=== PATIENT | female | born 1980 | race Caucasian/White ===

== ENCOUNTER 2018-05-31 06:21 | Inpatient (IN) ==
[2018-05-31] MEDS ORDERED: Sodium Chlor 0.9% Inj 500 ML IV.CONT ONE (07:00)
[2018-05-31] MEDS ORDERED: Chlorhexidine Gluconate 2% 1 Pack (2 Cloths) TOPICAL ONE (07:00)
[2018-05-31] MEDS ORDERED: Metoprolol Tartrate 25 MG Tablet PO ONE (07:00)
[2018-05-31] MEDS ORDERED: Sodium Chloride 0.9% 2 ML Flush PRN IV.FLUSH (07:02)
[2018-05-31] MEDS ORDERED: Heparin - SQ 10,000 UNITS/ML Vial SQ SCH (07:15)
[2018-05-31] MEDS ORDERED: Sugammadex Inj 200 MG/2 ML Vial IV.PUSH ONE (07:30)
[2018-05-31] MEDS ORDERED: Artificial Tears Opth Oint 3.5 GM Tube ONE (07:31)
[2018-05-31] MEDS ORDERED: Lidocaine 1%/Epinephrine 1:100,000 Inj 50 ML Vial ONE (08:56)
[2018-05-31] MEDS ORDERED: Glycopyrrolate Inj 1 MG/5 ML Syringe IV.PUSH ONE (09:13)
--- NOTE | 2018-05-31 10:04 | P.OP ---
- Preoperative Diagnosis (1) Endometriosis - Postoperative Diagnosis (1) Endometriosis Date of procedure: 05/31/18 Procedure: Cystoscopy and placement of bilateral ureteral catheters Implants: Bilateral ureteral catheters Anesthesia: GETA Surgeon: Roland Farr MD Estimated blood loss (mL): 0 Pathology: none sent Operation and Findings: Indication for urologic procedures: Consulted intraoperatively to place bilateral ureteral catheters to aid in visualization of this patient's ureters during her FOCUSER and colorectal procedures. Urologic procedures in detail: With the patient in the dorsolithotomy position, I proceeded with cystoscopic evaluation utilizing the rigid cystoscope with the 22 Portuguese sheath and the 30 degree lens. Both right and left ureteral orifices were in correct anatomic position draining clear yellow urine. There were no bladder mucosal lesions, calculi or diverticula formation. There were no areas suspicious for fistula formation. I then proceeded to pass a sensor 0.035 wire up the patient's left ureter until a small amount of resistance was met. A 6 Portuguese open-ended ureteral catheter was then advanced over the wire 25 cm in a cephalad direction. With the catheter in place the wire was withdrawn and reintroduced through secondary site via the cystoscope. In similar fashion the contralateral side was accomplished. The cystoscope and wire were then withdrawn and a 16 Portuguese three-way Swartz was placed. Both ureteral catheters were anchored to the Swartz via a connector and all catheters placed to gravity drainage. This completes the urologic surgery portion of combined procedures on this patient.
[2018-05-31] MEDS ORDERED: Naloxone Inj 0.4 MG/ML Vial IV.PUSH PRN (14:17)
[2018-05-31] MEDS ORDERED: fentaNYL Citrate Inj 100 MCG/2 ML Ampul ONE ×2 (14:47)
[2018-05-31] MEDS ORDERED: Morphine Inj 4 MG/ML Vial ONE (14:47)
--- NOTE | 2018-05-31 14:50 | MP ---
cc: Natalie Diaz MD, Kathleen MD DATE OF OPERATION: 05/31/2018 DATE OF PROCEDURE: 05/31/2018 PREOPERATIVE DIAGNOSIS: Severe symptomatic endometriosis. POSTOPERATIVE DIAGNOSIS: Severe symptomatic endometriosis. PROCEDURE: Robotic-assisted laparoscopic hysterectomy, bilateral salpingo-oophorectomy, right ureterolysis, lysis of adhesions. SURGEON: Madonna Diaz MD ANALYZER SALES: [employer] certified first assistant. ANESTHESIA: General endotracheal anesthesia. ESTIMATED BLOOD LOSS: 100 mL. HISTORY: A 38-year-old female with cyclic pain, cyclic symptoms including GI symptoms, pain with bowel movements, sometimes bleeding, found on exam to have changes suggestive of endometriosis previously underwent a sigmoidoscopy that showed stricture in the sigmoid colon. She has been seen on multiple occasions and counseled. She has been started on Depot Lupron injections, which have improved, but not resolved her symptoms and her CA-125 which was modestly elevated as improved, but not normalized. She is also seeing Dr. Joelle Llanes in colorectal surgery for consultation, and she presents now for definitive surgical management. Previously discussed and discussed again today are the reproductive and menopausal ramifications of a hysterectomy and bilateral salpingo-oophorectomy. She understands that this is the most definitive treatment for endometriosis, but understands menopausal changes and infertility that result. She was also seen Dr. Joelle Llanes and understands that there is a reasonably high chance to alleviate her symptomatic endometriosis that a sigmoid colon resection may be necessary. We have coordinated surgery to move forward at this time. She expressed good understanding and agrees. FINDINGS: On laparoscopic evaluation, the uterus is not appreciably enlarged. It sounds to approximately 8 cm. The tubes and ovaries are adherent to the pelvic sidewall. The bladder is adherent to the lower uterine segment and cervix and the sigmoid colon is lopped back on itself, structured and adherent in the posterior cul-de-sac to the level of the cervix. There is no overt evidence of intraperitoneal nodularity. No adenopathy or other abnormality to suggest malignancy. Preliminary evaluation of the uterus, tubes, and ovaries showed no evidence of malignancy. DESCRIPTION OF PROCEDURE: She was taken to the operating room and placed in the dorsal lithotomy position after general endotracheal anesthesia was administered. A timeout was undertaken. She was identified by site recognition and hospital ID bracelet and the proposed procedure was reviewed and confirmed. She was carefully secured to the table. Arms were secured. All sites were inspected and noted to be properly aligned with no malalignments or pressure points. She was prepped and draped in sterile fashion. Dr. Roland Farr performed cystoscopy and placed retrograde stents after which I placed a VCare manipulator. The cervix was grasped. The uterine cavity was sounded. Cervix was dilated and a standard VCare manipulator was inserted and secured in usual fashion. Dr. Joelle Llanes started work simultaneously and gained access to the peritoneal cavity laparoscopically and set up the port sites in keeping with our surgical objectives. The robotic system was brought into the operative field after 3 Ray-Indigo sponges were placed in the peritoneal cavity after the small bowel was folded back in its mesenteric root and the HEALTHCARE ECONOMICS CONSULTANT objectives were first set for the surgery, so I took my place at the surgeon's console. The right round ligament was isolated, cauterized, transected. The anterior and posterior leafs of the broad ligament were opened. Retroperitoneal dissection was carried above the level of the pelvic brim. The right ureter was densely adherent with adhesions parallel to and adjacent to the gonadal vessels proximally, so a window of peritoneum was opened below the right utero-ovarian ligament and the posterior peritoneum was opened along the right side of the uterus and cervix. Dissecting the adhesions to elevate the gonadal vessels in this region. Redirected toward the proximal pelvis where sharp dissection was used to take down the scar tissue, separate the adhesions to allow mobilization of the ureter and these adhesions were taken down along its course in the pelvis until the ureter could be mobilized laterally and away from the gonadal structures. Now, the infundibulopelvic ligament was isolated, cauterized, and transected. The vesicouterine peritoneum was dissected off the lower uterine segment and cervix. The right uterine vessels were skeletonized, cauterized and transected as were the cardinal, paracervical and uterosacral ligaments. Attention was directed toward the left side. Left round ligament was isolated, cauterized, and transected. The anterior and posterior leafs of the broad ligament were opened. Some physiologic adhesions from the colon to the left pelvic sidewall were taken down with sharp dissection. The left ureter was identified in the retroperitoneum. The left ovary was densely adhered to the left pelvic sidewall and cul-de-sac and these adhesions were taken down with sharp dissection to mobilize the ovary. An opening was made in the peritoneum and the infundibulopelvic ligament was isolated to the level of the pelvic brim. The ureter had been retracted posteriorly and the infundibulopelvic ligament was cauterized and transected. The uterine vessels were skeletonized on the left. The posterior peritoneum was open on the left side and the vesicouterine peritoneum was dissected to complete the bladder flap. The left uterine vessels were now cauterized and transected as were the cardinal, paracervical and uterosacral ligaments. Circumferential colpotomy was performed the cervix from the upper vagina. The specimen was withdrawn transvaginally which included uterus, cervix, tubes and ovaries and a lap pad was placed in the vagina to maintain pneumoperitoneum. Instruments 1 and 3 were exchanged for needle drivers as a 0 Vicryl suture was introduced. Vaginal cuff was closed starting at the left corner and full-thickness closure, incorporating the edge of the uterosacral ligament and posterior peritoneum. It was tied via instrument tie. Closure was held on countertraction as a full-thickness continuous running closure was carried across the vaginal cuff to the contralateral corner. They were similarly fixed tied secured and the needle was cut and removed. Integrity of the bladder was confirmed by filling the bladder with saline dyed with methylene blue. There was a good margin between the vaginal cuff suture line and the edge of the bladder. The bladder wall was intact. No areas to suggest thinning and no defects in the bladder. Good peristalsis of ureters bilaterally and the bladder was drained. Pelvis was thoroughly irrigated, rendered free of blood and clot. It should be noted that prior to closing the cuff, each of the 3 Ray-Indigo sponges that had been placed in the peritoneal cavity had been removed transvaginally with a ring forceps. Each were inspected and noted to be removed in their entirety. Preliminary counts were correct and there were no remaining foreign objects in peritoneal cavity. It was felt that all reasonable gynecologic objectives of the surgery had been completed. Dr. Llanes was notified that we are ready for her portion of the case. After the laparoscopic instruments were removed, the robotic system was undocked for repositioning by Dr. Llanes. This allowed the pelvic exam to confirm that the vaginal cuff was hemostatic and well supported. There were no remaining foreign objects in the vagina. Preliminary and final counts were correct and the case was turned over to Dr. Llanes. Please see her operative note for her procedures. MD Suleiman Quach , 01:37 PM , 01:54 PM
[2018-05-31] MEDS ORDERED: *Meperidine Inj 25 MG/ML Vial PERIprocedural Use ONLY ONE (14:59)
[2018-05-31] MEDS: Dextrose 5%/NaCl 0.9% Inj 1,000 ML IV.CONT SCH ×2 (15:00→23:10)
[2018-05-31] MEDS: Morphine Inj 30 MG/30 ML PCA.VIAL PCA PRN (15:12)
[2018-05-31] MEDS ORDERED: *morphine SULFATE 4 MG/ML PERIprocedure ONLY ONE (15:21)
[2018-05-31] MEDS ORDERED: NORMOSOL R PH IV.CONT PRN (15:45)
[2018-05-31 15:57] LABS: Baso % (Auto) 0.1 % (0.0-2.0); Hematocrit 36.6 % (35.0-46.0); Hemoglobin 12.4 gm/dL (11.6-15.3); Lymph # (Auto) 0.5 th/mm3 (1.0-4.8); Lymph % (Auto) 3.5 % (9.0-44.0); Mean Corpuscular HGB Conc 33.7 % (32.0-36.0); Mean Corpuscular Hemoglobin 27.4 pg (27.0-34.0); Mean Corpuscular Volume 81.1 fL (80.0-100.0); Mean Platelet Volume 8.2 fL (7.0-11.0); Mono # (Auto) 0.4 th/mm3 (0.0-0.9); Neut # (Auto) 11.9 th/mm3 (1.8-7.7); Neut % (Auto) 93.4 % (16.0-70.0); Platelet Count 149 th/mm3 (150-450); Red Blood Count 4.52 mil/mm3 (4.00-5.30); Red Cell Distribution Width 13.9 % (11.6-17.2); White Blood Count 12.7 th/mm3 (4.0-11.0)
[2018-05-31 16:25] LABS: Carbon Dioxide 25.7 meq/L (21.0-32.0); Potassium 3.2 meq/L (3.5-5.1)
--- NOTE | 2018-05-31 16:41 | MP ---
cc: Nai Llanes MD, Dr. DATE OF OPERATION: 05/31/2018 DATE OF SURGERY: 05/31/2018. PREOPERATIVE DIAGNOSIS: Stricture secondary to endometriosis. POSTOPERATIVE DIAGNOSES: Stricture secondary to endometriosis. PROCEDURE: Robotic low anterior resection. SURGEON: Nai Llanes MD ANESTHESIA: General per ET tube. ESTIMATED BLOOD LOSS: Less than 50 mL INDICATIONS: The patient is a 38-year-old female who has been noted to have severe endometriosis which also involved her distal sigmoid colon with a stricture, which was fairly symptomatic with difficulty with constipation. This procedure was done in concert with a robotic hysterectomy with bilateral salpingo-oophorectomy by Dr. Diaz; please see his operative note for details. OPERATIVE FINDINGS: The patient had a very tight stricture at the distal sigmoid just above the rectosigmoid junction with no mucosal abnormalities once the specimen was opened. The liver was visibly normal. The uterus and ovaries are addressed in Dr. Diaz' report. OPERATIVE COURSE: The patient was brought to the operating room, placed in the supine position. After induction of general anesthesia, the patient was placed in Jorje stirrups and all bony prominences were carefully padded. The skin of the anterior abdominal wall as well as the perineal area was then prepped and draped in the usual sterile fashion. Dr. Parth Farr then came in and performed cystoscopy with placement of bilateral ureteral catheters, please see his operative note for details. The site was then chosen for the camera being located just to the right and cephalad to the umbilicus. A 10/12 trocar was placed at this location under direct vision using the laparoscope. CO2 insufflation was then undertaken and a brief abdominal survey was performed with nothing noted that would preclude the robotic approach. The remainder of the ports were then placed as follows: The #1 port was placed just inside the right anterior superior iliac spine. An 8-Da Deneen port was placed just under the right costal margin an equal distance between the #1 and the camera port for Dr. Diaz to use as his #1 port. An 8-Da Deneen was placed in the left anterior axillary line on the line of the umbilicus and the #2 port was placed 2 fingerbreadths above the umbilical line in the left midclavicular line. The patient was hydroplaned with head down and slightly to the right and the small bowel was brought up and out of the pelvis without any difficulty. At this point, Dr. Diaz came in and his portion of the procedure. When he was completed, I returned. The sigmoid colon was retracted to the left and the peritoneum on the right was scored. Dissection was continued in the posterior plane until the left ureter was clearly identified and swept away from the specimen. A window was then made distally around the superior hemorrhoidal vessels. These were dissected free circumferentially and a white load of the [place] [facility] stapler was placed across the vessels at this level. Dissection then continued posteriorly down to the level of the distal rectum and up and around to the right and left side. At this point, the anterior surface of the rectum where the stricture was, was carefully dissected free from the posterior vagina. Eventually, we had dissected past the area of the stricture and inflammatory changes, but it was necessary to go below the cul-de-sac for this. At about the mid rectum level, the bowel was soft and pliable circumferentially. The mesentery at this level was divided using the Harmonic scalpel and a blue load of [place] endoscopic stapler was placed across the bowel at this level. A second load was necessary to transect the bowel. The 29 EEA stapler was advanced through the anus and up to the rectal stump without difficulty and it lay nicely with a small amount of fibrofatty tissue that was removed. The proximal bowel was brought down to lay nicely against the rectal stump without tension and I did not feel that we needed to do much additional dissection. The proximal staple at the end of the bowel was grasped with a locking grasper and the robot was undocked. An 8 cm -10 cm incision was made in the suprapubic area using electrocautery. Dissection was carried down to the fascia of the anterior abdominal wall, which was split the length of the skin incision. The fibers of the rectus abdominus muscle were then spread open without cauterizing too many of them and the posterior fascia/peritoneum was incised the length of the skin incision as well. A wound protector was then placed and the proximal stapled end of the bowel was grasped and pulled up and out through the wound protector. Site was chosen for proximal division of the bowel where it came down nicely to the rectal stump. The mesentery at this level was similarly divided and ligated using 0-Vicryl ties and a pursestring stapling device was placed across the bowel at this level. The distal bowel was occluded with a Anthony clamp. The bowel was then amputated and taken to a back table where it was opened and the previously mentioned findings were noted. The anvil from the 29 EEA stapler was then placed into the cut end of the bowel and the previously placed pursestring suture was then secured. This was reduced back into the peritoneal cavity. The posterior fascia/peritoneum was then closed in a running fashion using #1 PDS and the anterior fascia was closed in running fashion using #1 PDS. The wound was copiously irrigated with warm normal saline. Skin was closed in a running subcuticular fashion using 3-0 Vicryl. An Op-Site was placed across the incision and CO2 insufflation was then resumed. The laparoscope was then brought back to the field and placed into the peritoneal cavity as CO2 insufflation was resumed. The 29 EEA stapler was advanced through the anus up to the rectal stump and the spike was advanced just posterior to the staple line. The being careful that the bowel was not twisted. The stapler was then closed, held for 30 seconds; fired and removed, thus creating the enteroenterostomy. Both anastomotic rings were complete, and the anastomosis appeared pink and healthy circumferentially. A small amount of warm normal saline was placed into the pelvis and air was insufflated in the rectum until gentle tension was noted and anastomosis with no sign of any leakage noted. The air was desufflated possible and the saline was suctioned out of the pelvis. The anastomosis lay in a nice orientation with no tension noted on the anastomosis. There was no sign of any bleeding in any of the dissection beds. The fascia at the 10/12 trocar sites in the right lower quadrant and umbilicus were then closed using a crossbow device and a #1-PDS suture. These were placed, but not secured until the CO2 insufflation was removed. The CO2 was removed to the extent possible and the fascial sutures were then secured. The trocar sites were irrigated with warm normal saline and the skin was closed in interrupted subcuticular fashion using 3-0 Vicryl. Steri-Strips and sterile dressing were then applied. The right ureteral stent was removed. All sponge, needle and instrument counts were correct and the patient was returned to the Postanesthesia Care Unit in a stable condition. MD OLE Chance/rick/terrence , 02:33 PM , 02:46 PM
[2018-05-31] MEDS ORDERED: Potassium Chlor 20 mEq Premix 20 MEQ/100 ML PIGGYBACK IV.SIG ONE (17:45)
[2018-05-31] MEDS: Heparin - SQ 10,000 UNITS/ML Vial SQ SCH (21:33)
[2018-05-31] MEDS: Famotidine PF Inj 20 MG/2 ML Vial IV.PUSH SCH (23:01)
[2018-05-31] MEDS: Sodium Chloride 0.9% 2 ML Flush BID IV.FLUSH SCH (23:04)
[2018-06-01] MEDS: Dextrose 5%/NaCl 0.9% Inj 1,000 ML IV.CONT SCH ×2 (05:52→19:28)
[2018-06-01 06:31] LABS: Baso % (Auto) 0.3 % (0.0-2.0); Hematocrit 33.9 % (35.0-46.0); Hemoglobin 11.3 gm/dL (11.6-15.3); Lymph % (Auto) 9.8 % (9.0-44.0); Mean Corpuscular HGB Conc 33.4 % (32.0-36.0); Mean Corpuscular Hemoglobin 27.6 pg (27.0-34.0); Mean Corpuscular Volume 82.6 fL (80.0-100.0); Mean Platelet Volume 8.7 fL (7.0-11.0); Mono # (Auto) 0.8 th/mm3 (0.0-0.9); Mono % (Auto) 8.6 % (0.0-8.0); Neut % (Auto) 81.3 % (16.0-70.0); Platelet Count 136 th/mm3 (150-450); Red Cell Distribution Width 13.7 % (11.6-17.2); White Blood Count 9.8 th/mm3 (4.0-11.0)
[2018-06-01 07:01] LABS: Calcium 7.8 mg/dL (8.5-10.1); Carbon Dioxide 25.6 meq/L (21.0-32.0); Potassium 3.5 meq/L (3.5-5.1)
--- NOTE | 2018-06-01 07:22 | P.PN ---
Subjective Interval history: c/o some discomfort, fatigue c/w surgery nausea improved, no other c/o Physical Exam Vital signs: Vital Signs 05/31/18 14:35 05/31/18 14:45 05/31/18 15:00 Temperature 95.6 F L 95.8 F L Pulse Rate 100 H 103 H 101 H Respiratory Rate 16 16 15 Blood Pressure 108/56 L 105/56 L 108/53 L Pulse Oximetry 99 100 96 05/31/18 15:15 05/31/18 15:30 05/31/18 15:45 Temperature 96.4 F L Pulse Rate 97 H 93 H 89 Respiratory Rate 16 15 15 Blood Pressure 109/57 L 111/59 L 108/60 Pulse Oximetry 97 97 98 05/31/18 16:00 05/31/18 16:15 05/31/18 16:30 Temperature 96.7 F L 97.0 F L Pulse Rate 91 H 84 87 Respiratory Rate 16 15 16 Blood Pressure 112/66 116/68 117/67 Pulse Oximetry 98 98 98 05/31/18 16:45 05/31/18 17:00 05/31/18 17:30 Temperature Pulse Rate 92 H 89 88 Respiratory Rate 16 16 15 Blood Pressure 115/66 119/65 118/60 Pulse Oximetry 97 97 98 05/31/18 18:00 05/31/18 18:30 05/31/18 19:00 Temperature Pulse Rate 89 90 92 H Respiratory Rate 15 15 16 Blood Pressure 116/59 L 116/61 114/55 L Pulse Oximetry 98 98 99 05/31/18 19:30 05/31/18 20:00 06/01/18 00:00 Temperature 98.2 F 98.6 F 98.7 F Pulse Rate 95 H 74 70 Respiratory Rate 16 16 18 Blood Pressure 115/58 L 135/71 105/56 L Pulse Oximetry 98 99 100 06/01/18 04:00 Temperature 98.6 F Pulse Rate 76 Respiratory Rate 16 Blood Pressure 103/58 L Pulse Oximetry 99 Intake & Output 05/31/18 06/01/18 06/01/18 18:59 06:59 18:59 Intake Total 2700 / 2700 2530 / 2530 100 / 100 Output Total 650 / 650 2125 / 2125 Balance 2049 / 2050 405 / 405 100 / 100 Weight 46.5 kg Intake: IV 1400 / 1400 2290 / 2290 100 / 100 D5W/Normal Saline Inj 1,000 ML 1989 / 1989 @ 125 mls/hr IV.CONT .Q8H [facility] Rx#:[id number] LR 1000 mL Inj 1,000 ML @ 30 1000 / 1000 mls/hr IV.CONT .Q24H ONE Rx#: [id number] KCl 20 mEq Premix Inj 20 meq In 100 / 100 100 ml @ 50 mls/hr IV.SIG ONCE ONE Rx#:[id number] Ancef Inj 1,000 MG In NS Inj 200 / 200 100 / 100 100 ML @ 200 mls/hr IV.SIG Q8H [facility] Rx#:[id number] Flagyl 500 MG Inj 100 ML @ 200 200 / 200 100 / 100 100 / 100 mls/hr IV.SIG Q8H [facility] Rx#: [id number] Oral 240 / 240 Anesthesia Amount 1300 / 1300 Output: Estimated Blood Loss 150 / 150 Urine Amount (Catheter) 500 / 500 2124 3-way Urethral 500 / 500 2124 Other: Date of Last Bowel Movement 05/31/18 - Constitutional no acute distress - Routine HEENT Exam Eye: Present: EOMI, PERRL - Routine Respiratory Exam Present: CTA bilaterally (mild basilar rales) - Routine Cardiovascular Exam Present: RRR - Routine Abdominal Exam Present: soft, wound (clean, dry) - Routine Neurological Exam Present: alert - Urinary Catheter Management 3-way Urethral Cath placed during this visit: yes Reason for continuing: Hourly intake/output Insertion date: 05/31/18 Insertion time: 10:00 Results - Labs CBC & Chem 7: 06/01/18 05:18 06/01/18 05:18 Laboratory Results - last 24 hr 05/31/18 05/31/18 05/31/18 07:18 15:45 15:45 WBC 12.7 H RBC 4.52 Hgb 12.4 Hct 36.6 MCV 81.1 MCH 27.4 MCHC 33.7 RDW 13.9 Plt Count 149 L MPV 8.2 Neut % (Auto) 93.4 H Lymph % (Auto) 3.5 L [place] % (Auto) 3.0 Eos % (Auto) 0.0 Baso % (Auto) 0.1 Neut # (Auto) 11.9 H Lymph # (Auto) 0.5 L [place] # (Auto) 0.4 Eos # (Auto) 0.0 Baso # (Auto) 0.0 WBC Differential . Differential Comment Auto diff final Sodium 140 Potassium 3.2 L Chloride 106 Carbon Dioxide 25.7 Anion Gap 8 BUN 8 Creatinine 0.81 Estimated GFR 80 L Random Glucose 164 H Calcium 8.0 L Blood Type B Positive Blood Type Recheck Required Antibody Screen Negative 06/01/18 06/01/18 05:18 05:18 WBC 9.8 RBC 4.10 Hgb 11.3 L Hct 33.9 L MCV 82.6 MCH 27.6 MCHC 33.4 RDW 13.7 Plt Count 136 L MPV 8.7 Neut % (Auto) 81.3 H Lymph % (Auto) 9.8 [place] % (Auto) 8.6 H Eos % (Auto) 0.0 Baso % (Auto) 0.3 Neut # (Auto) 8.0 H Lymph # (Auto) 1.0 [place] # (Auto) 0.8 Eos # (Auto) 0.0 Baso # (Auto) 0.0 WBC Differential . Differential Comment Auto diff final Sodium 143 Potassium 3.5 Chloride 112 H Carbon Dioxide 25.6 Anion Gap 5 BUN 5 L Creatinine 0.89 Estimated GFR 71 L Random Glucose 125 H Calcium 7.8 L Blood Type Blood Type Recheck Antibody Screen Assessment and Plan - Plan POD #1 doing well in early post-op period findings at surgery, steps taken reviewed, q&a, she understands oob, ambulate with assist, spirometry, cpm
[2018-06-01] MEDS: Heparin - SQ 10,000 UNITS/ML Vial SQ SCH ×2 (08:09→22:55)
[2018-06-01] MEDS: Famotidine PF Inj 20 MG/2 ML Vial IV.PUSH SCH ×2 (08:19→22:55)
[2018-06-01] MEDS: Sodium Chloride 0.9% 2 ML Flush BID IV.FLUSH SCH ×2 (11:11→22:56)
--- NOTE | 2018-06-01 11:32 | P.PNCS ---
Subjective Colorectal Surgery Post Op Day #: 1 Interval history: C/O severe 10/10 pain, but admits that she falls asleep shortly after HEALTH THERAPIST dose. Pt was asleep when I arrived. Some nausea no vomiting. Objective Result Diagrams: 06/01/18 05:18 06/01/18 05:18 Objective Remarks: Abd: mild distention, CO2 vs bowel gas. dressings dry. Assessment and Plan - Plan OOB Will increase HEALTH THERAPIST to 1 mg and decrease interval to 6 minutes. Will start oral pain meds and transition off IV pain control for longer more steady pain relief D/C espinoza and ureteral cath
[2018-06-02] MEDS: Dextrose 5%/NaCl 0.9% Inj 1,000 ML IV.CONT SCH (04:56)
[2018-06-02] MEDS: Morphine Inj 30 MG/30 ML PCA.VIAL PCA PRN (07:17)
--- NOTE | 2018-06-02 07:53 | P.PNCS ---
Subjective Colorectal Surgery Post Op Day #: 2 Interval history: Remains anxious. Worried regarding pain, no flatus, vaginal swelling. Reassured. Objective Result Diagrams: 06/01/18 05:18 06/01/18 05:18 Objective Remarks: Abd: Dressings dry. Soft,non tender Assessment and Plan - Plan OOB Stop Zofran Oral pain meds Ambulate
[2018-06-02] MEDS: Famotidine PF Inj 20 MG/2 ML Vial IV.PUSH SCH ×2 (09:20→21:44)
[2018-06-02] MEDS: Heparin - SQ 10,000 UNITS/ML Vial SQ SCH ×2 (09:21→21:49)
[2018-06-02 09:49] LABS: Baso % (Auto) 0.2 % (0.0-2.0); Eos % (Auto) 0.5 % (0.0-4.0); Hemoglobin 11.1 gm/dL (11.6-15.3); Lymph # (Auto) 0.6 th/mm3 (1.0-4.8); Lymph % (Auto) 7.6 % (9.0-44.0); Mean Corpuscular HGB Conc 33.5 % (32.0-36.0); Mean Corpuscular Hemoglobin 27.6 pg (27.0-34.0); Mean Corpuscular Volume 82.4 fL (80.0-100.0); Mean Platelet Volume 8.4 fL (7.0-11.0); Mono # (Auto) 0.5 th/mm3 (0.0-0.9); Mono % (Auto) 6.6 % (0.0-8.0); Neut # (Auto) 6.3 th/mm3 (1.8-7.7); Neut % (Auto) 85.1 % (16.0-70.0); Platelet Count 127 th/mm3 (150-450); Red Blood Count 4.01 mil/mm3 (4.00-5.30); Red Cell Distribution Width 13.8 % (11.6-17.2); White Blood Count 7.4 th/mm3 (4.0-11.0)
[2018-06-02 10:10] LABS: Calcium 8.2 mg/dL (8.5-10.1); Carbon Dioxide 29.8 meq/L (21.0-32.0); Potassium 3.3 meq/L (3.5-5.1)
[2018-06-02] MEDS: Sodium Chloride 0.9% 2 ML Flush BID IV.FLUSH SCH ×2 (13:49→21:41)
[2018-06-02 14:56] VITALS: RESP 16
[2018-06-03] MEDS: Dextrose 5%/NaCl 0.9% Inj 1,000 ML IV.CONT SCH ×2 (01:42→08:16)
[2018-06-03 08:12] VITALS: O2SAT 100
--- NOTE | 2018-06-03 08:40 | P.PNONC ---
Subjective Interval history: POD #3 patient feeling better today pain controlled denies nausea or vomiting denies flatus states burning with urination, could be from [place] was discharged on 06/02/18...will check urine C & S Objective Vital Signs/Intake & Output: Vital Signs 06/02/18 12:00 06/02/18 18:00 06/02/18 22:15 Temperature 98.4 F 97.8 F 98.8 F Pulse Rate 71 69 71 Respiratory Rate 16 16 16 Blood Pressure 111/67 113/58 L 116/59 L Pulse Oximetry 97 99 100 06/03/18 00:00 06/03/18 05:24 06/03/18 08:08 Temperature 98.7 F 98.4 F 97.9 F Pulse Rate 56 L 67 66 Respiratory Rate 16 16 16 Blood Pressure 115/67 110/57 L 129/66 Pulse Oximetry 99 99 100 Intake & Output 06/02/18 06/03/18 06/03/18 18:59 06:59 18:59 Intake Total 1000 / 1000 240 / 240 1000 / 1000 Output Total 700 / 700 Balance 1000 / 1000 -460 / -460 1000 / 1000 Weight 46.8 kg Intake: IV 1000 / 1000 1000 / 1000 D5W/Normal Saline Inj 1,000 ML 1000 / 1000 1000 / 1000 @ 30 mls/hr IV.CONT .Q24H [facility] Rx#:[id number] Oral 240 / 240 Output: Urine 700 / 700 Other: # Voids 6 Date of Last Bowel Movement 05/31/18 Result Diagrams: 06/02/18 09:06 06/02/18 09:06 Laboratory Results: Laboratory Results - last 24 hr 06/02/18 06/02/18 09:06 09:06 WBC 7.4 RBC 4.01 Hgb 11.1 L Hct 33.0 L MCV 82.4 MCH 27.6 MCHC 33.5 RDW 13.8 Plt Count 127 L MPV 8.4 Neut % (Auto) 85.1 H Lymph % (Auto) 7.6 L [place] % (Auto) 6.6 Eos % (Auto) 0.5 Baso % (Auto) 0.2 Neut # (Auto) 6.3 Lymph # (Auto) 0.6 L [place] # (Auto) 0.5 Eos # (Auto) 0.0 Baso # (Auto) 0.0 WBC Differential . Differential Comment Auto diff final Sodium 142 Potassium 3.3 L Chloride 107 Carbon Dioxide 29.8 Anion Gap 5 BUN 2 L Creatinine 0.85 Estimated GFR 75 L Random Glucose 115 H Calcium 8.2 L Medications: Active Medications Generic Name Dose Route Start Last Admin Trade Name Freq PRN Reason Stop Dose Admin Hydrocodone Bitart/Acetaminophen 2 tab 05/31/18 14:20 06/03/18 06:05 [place] 5/325 PO 2 tab Q6H PRN Administration PAIN SCALE 6 TO 10 Famotidine 20 mg 05/31/18 21:00 06/02/18 21:44 Pepcid Pf Inj IV.PUSH 20 mg Q12HR LIS Administration Heparin Sodium (Porcine) 5,000 units 05/31/18 21:00 06/02/18 21:49 Heparin Inj SQ 5,000 units Q12HR LIS Administration Dextrose/Sodium Chloride 1,000 mls @ 30 mls/hr 05/31/18 14:30 06/03/18 08:16 D5w/Normal Saline Inj IV.CONT 06/03/18 14:16 125 mls/hr .Q24H LIS Administration Morphine Sulfate 30 mg in 30 mls @ 0 mls/hr 05/31/18 14:17 06/02/18 07:17 Morphine Inj [employer]ANNING CONSULTANT 0 mls/hr UNSCH PRN Administration per PLANNING CONSULTANT parameters 0 MG/HR Sodium Chloride 2 ml 05/31/18 09:00 06/02/18 21:41 Ns Flush IV.FLUSH Not Given BID LIS Objective Remarks: GENERAL: Well-nourished, well-developed patient. SKIN: Warm and dry. HEAD: Normocephalic. EYES: No scleral icterus. No injection or drainage. CARDIOVASCULAR: Regular rate and rhythm without murmurs. RESPIRATORY: Breath sounds equal bilaterally. No accessory muscle use. GASTROINTESTINAL: Abdomen soft, non-tender, nondistended. SS are c/d/i, dressing clean EXTREMITIES: teds MUSCULOSKELETAL: Adequate muscle tone. NEUROLOGICAL: No obvious focal deficit. Awake, alert, and oriented x3. PSYCHIATRIC: Appropriate mood and affect; insight and judgment normal. Assessment/Plan - Plan POD # 3 Robotic-assisted laparoscopic hysterectomy, bilateral salpingo-oophorectomy, right ureterolysis, lysis of adhesions pain control OOB to chair and ambulate discharge per Dr. Llanes, colorectal surgery diet per colorectal surgery supportive care
[2018-06-03] MEDS: Famotidine PF Inj 20 MG/2 ML Vial IV.PUSH SCH (09:55)
[2018-06-03] MEDS: Heparin - SQ 10,000 UNITS/ML Vial SQ SCH (09:55)
[2018-06-03] MEDS: Sodium Chloride 0.9% 2 ML Flush BID IV.FLUSH SCH (13:13)
[2018-06-03 15:49] VITALS: BP 130/75; PULSE 63; TEMP 98.7
--- NOTE | 2018-06-03 17:15 | P.PNCS ---
Subjective Colorectal Surgery Post Op Day #: 3 (s/p robotic sigmoid resection) Interval history: comfortable, wants to go home Objective Result Diagrams: 06/02/18 09:06 06/02/18 09:06 Objective Remarks: Abd: wounds clean. Soft,non tender Assessment and Plan - Assessment (1) Colon stricture Code(s): K56.699 - Other intestinal obstruction unspecified as to partial versus complete obstruction Status: Acute (2) Endometriosis Code(s): N80.9 - Endometriosis, unspecified Status: Acute - Plan Doing well. Home today. Followup 3 weeks
--- NOTE | 2018-06-14 07:29 | MD ---
cc: Nai Llanes MD DATE OF DISCHARGE: 06/03/2018 ADMISSION DIAGNOSES: 1. Endometriosis. 2. Colon stricture. DISCHARGE DIAGNOSES: 1. Endometriosis. 2. Colon stricture. PROCEDURES: 1. Cystoscopy and placement of bilateral ureteral catheters. 2. Robotic-assisted laparoscopic hysterectomy with bilateral salpingo-oophorectomy, right ureterolysis and lysis of adhesions. 3. Robotic low anterior resection. HOSPITAL COURSE: The patient is a 38-year-old female who was noted to have severe endometriosis as well as a colon stricture, which was symptomatic. She was admitted to the hospital after an outpatient bowel prep, where she was taken to the operating room and underwent the above-named procedures. Postoperatively, she did well with rapid return of bowel and bladder function. She was discharged home on the 06/03/2018 with instructions to follow up with myself and Dr. Diaz in the office. Final pathology was not available at the time of discharge. Nai Llanes MD KW/sv , 07:08 AM , 07:12 AM
== END 2018-06-03 19:19 | disposition home or self-care (01) ==
LOC: HSDC 06:21 → EDSTATUS 08:30 → HSDI 14:52 → HCIN 19:38
PROVIDERS: ADMIT Colon & Rectal Surgery; ATTEND Colon & Rectal Surgery